=== PATIENT | male | born 1975 | race African-American/Black ===

== ENCOUNTER 2019-02-02 03:01 | Inpatient (IN) | payer OTHER ==
[2019-02-02] MEDS: ACETAMINOPHEN 325 MG TAB PO (05:09)
[2019-02-02 09:18] LABS: ADD UMIC YES; UR ASCORBIC ACID NEGATIVE (NEGATIVE); UR BILIRUBIN (Dip) NEGATIVE (NEGATIVE); UR BLOOD (Dip) 1+ mg/dL (NEGATIVE); UR CLARITY CLEAR (CLEAR); UR COLOR YELLOW (YELLOW); UR GLUCOSE (Dip) NEGATIVE (NEGATIVE); UR KETONES (Dip) NEGATIVE (NEGATIVE); UR LEUKOCYTE ESTERASE (Dip) NEGATIVE Leu/ul (NEGATIVE); UR NITRITE (Dip) NEGATIVE (NEGATIVE); UR RBC 1 /HPF (0-5); UR SPECIFIC GRAVITY (Dip) 1.018 (1.003-1.030); UR TOTAL PROTEIN (Dip) 2+ mg/dl (NEGATIVE); UR UROBILINOGEN (Dip) NEGATIVE (NEGATIVE); UR WBC 0 /HPF (0-5)
[2019-02-02] MEDS ORDERED: LORAZEPAM 2 MG INJ IV (10:30)
[2019-02-02] MEDS ORDERED: NACL 0.9% 3 ML SYG IV (10:30)
[2019-02-02] MEDS ORDERED: ACETAMINOPHEN 325 MG TAB PO (10:30)
[2019-02-02] MEDS ORDERED: ONDANSETRON 4 MG INJ IV (10:30)
[2019-02-02] MEDS: SOD CHLORIDE 0.9% 1,000 ML IV ×2 (11:11→19:10)
[2019-02-02] MEDS: MULTIVITAMINS 10 ML, THIAMINE 100 MG, FOLIC ACID 1 MG in SOD CHLORIDE 0.9% 1,000 ML IVPB (11:54)
[2019-02-02] MEDS: PANTOPRAZOLE IV 80 MG in SOD CHLORIDE 0.9% 100 ML IV ×2 (11:55→21:13)
[2019-02-02] MEDS: CHLORDIAZEPOXIDE 25 MG CAP PO ×2 (12:25→21:10)
[2019-02-02] MEDS: LIDOCAINE 2% (SDV) 5 ML INJ (15:29)
[2019-02-02] MEDS: PROPOFOL 40 ML (15:29)
[2019-02-02 15:57] LABS: INR 1.02; PROTIME 13.5 Sec (11.9-14.9); PT RATIO 1.1
[2019-02-03] MEDS: SOD CHLORIDE 0.9% 1,000 ML IV ×3 (01:56→18:17)
[2019-02-03 06:47] LABS: ADD MAN DIFF? NO
[2019-02-03 06:52] LABS: BASOPHILS % 0.3 % (0.0-2.0); EOSINOPHILS # 0.1 10^3/ul (0.0-0.5); EOSINOPHILS % 0.9 % (0.0-7.0); HEMATOCRIT 31.7 % (42.0-52.0); HEMOGLOBIN 10.5 g/dl (14.0-18.0); LYMPHOCYTES # 1.4 10^3/ul (0.8-2.9); MEAN CORPUSCULAR HEMOGLOBIN 31.2 pg (29.0-33.0); MEAN CORPUSCULAR HGB CONC 33.1 g/dl (32.0-37.0); MEAN CORPUSCULAR VOLUME 94.1 fl (82.0-101.0); MEAN PLATELET VOLUME 11.2 fl (7.4-10.4); MONOCYTE # 0.4 10^3/ul (0.3-0.9); MONOCYTES % 4.8 % (0.0-11.0); NEUTROPHIL # 5.9 10^3/ul (1.6-7.5); NEUTROPHILS % 75.6 % (39.0-77.0); PLATELET COUNT 147 10^3/UL (140-415); RED BLOOD COUNT 3.37 10^6/ul (4.70-6.10); RED CELL DISTRIBUTION WIDTH 12.5 % (11.5-14.5)
[2019-02-03 06:52] LABS: WHITE BLOOD COUNT 7.7 10^3/ul (4.8-10.8)
[2019-02-03 07:12] LABS: ALANINE AMINOTRANSFERASE 34 IU/L (13-69); ALBUMIN 3.1 g/dl (3.3-4.9); ALBUMIN/GLOBULIN RATIO 0.96; ALKALINE PHOSPHATASE 39 IU/L (42-121); ANION GAP 7 (5-13); ASPARTATE AMINO TRANSFERASE 44 IU/L (15-46); BILIRUBIN,INDIRECT 0.6 mg/dl (0-1.1); BILIRUBIN,TOTAL 0.6 mg/dl (0.2-1.3); BLOOD UREA NITROGEN 11 mg/dl (7-20); CALCIUM 8.6 mg/dl (8.4-10.2); CARBON DIOXIDE 25 mmol/L (21-31); CHLORIDE 106 mmol/L (97-110); CHOL/HDL RATIO 4.3 RATIO; CHOLESTEROL 215 mg/dl (100-200); CREATININE 1.09 mg/dl (0.61-1.24); Estimated GFR > 60 mL/min (>60); GLUCOSE 84 mg/dl (70-220); HDL CHOLESTEROL 49 mg/dl (27-67); LDL CHOLESTEROL,CALCULATED 121 mg/dl; MAGNESIUM 1.6 mg/dl (1.7-2.5); PHOSPHORUS 3.2 mg/dl (2.5-4.9); POTASSIUM 3.4 mmol/L (3.5-5.1); SODIUM 138 mmol/L (135-144); TOTAL PROTEIN 6.3 g/dl (6.1-8.1); TRIGLYCERIDES 226 mg/dl (0-149)
[2019-02-03 08:09] LABS: HEMOGLOBIN A1C 5.2 % (0-5.9)
[2019-02-03] MEDS: CHLORDIAZEPOXIDE 25 MG CAP PO ×3 (09:15→21:23)
[2019-02-03] MEDS: MULTIVITAMINS 10 ML, THIAMINE 100 MG, FOLIC ACID 1 MG in SOD CHLORIDE 0.9% 1,000 ML IVPB (09:20)
[2019-02-03] MEDS: PANTOPRAZOLE IV 80 MG in SOD CHLORIDE 0.9% 100 ML IV (09:21)
[2019-02-03] MEDS: POTASSIUM CHLORIDE (SR) 20 MEQ TAB PO (13:08)
[2019-02-03] MEDS: MAGNESIUM SULFATE 2 GM/50 ML 50 ML IVPB (15:02)
[2019-02-03] MEDS: PANTOPRAZOLE (EC) 40 MG TAB PO (19:26)
[2019-02-04] MEDS: SOD CHLORIDE 0.9% 1,000 ML IV ×2 (01:55→09:55)
[2019-02-04] MEDS: PANTOPRAZOLE (EC) 40 MG TAB PO (05:42)
[2019-02-04 06:37] LABS: ADD MAN DIFF? NO
[2019-02-04 06:49] LABS: BASOPHILS % 0.3 % (0.0-2.0); EOSINOPHILS # 0.1 10^3/ul (0.0-0.5); HEMATOCRIT 30.7 % (42.0-52.0); HEMOGLOBIN 10.9 g/dl (14.0-18.0); LYMPHOCYTES # 1.4 10^3/ul (0.8-2.9); MEAN CORPUSCULAR HEMOGLOBIN 32.4 pg (29.0-33.0); MEAN CORPUSCULAR HGB CONC 35.5 g/dl (32.0-37.0); MEAN CORPUSCULAR VOLUME 91.4 fl (82.0-101.0); MEAN PLATELET VOLUME 11.4 fl (7.4-10.4); MONOCYTE # 0.5 10^3/ul (0.3-0.9); MONOCYTES % 6.8 % (0.0-11.0); NEUTROPHILS % 70.5 % (39.0-77.0); PLATELET COUNT 151 10^3/UL (140-415); RED BLOOD COUNT 3.36 10^6/ul (4.70-6.10); RED CELL DISTRIBUTION WIDTH 11.9 % (11.5-14.5)
[2019-02-04] MEDS: CHLORDIAZEPOXIDE 25 MG CAP PO ×2 (09:47→12:34)
[2019-02-04] MEDS: MULTIVITAMINS 10 ML, THIAMINE 100 MG, FOLIC ACID 1 MG in SOD CHLORIDE 0.9% 1,000 ML IVPB (09:52)
== END 2019-02-04 15:20 | disposition home or self-care (01) | DRG 392 ==
LOC: TEL 03:01
PROC: 0DB68ZX Excision of Stomach, Via Natural or Artificial Opening Endoscopic, Diagnostic (ICD-10-PCS; principal; 2019-02-02 15:00)
DX: K29.20 Alcoholic gastritis without bleeding (principal); F10.239 Alcohol dependence with withdrawal, unspecified; N17.9 Acute kidney failure, unspecified; R65.10 Systemic inflammatory response syndrome (SIRS) of non-infectious origin without acute organ dysfunction; K70.30 Alcoholic cirrhosis of liver without ascites; F20.9 Schizophrenia, unspecified; Z59.0 Homelessness; I10 Essential (primary) hypertension; D64.9 Anemia, unspecified; J38.5 Laryngeal spasm; K20.9 Esophagitis, unspecified; K70.40 Alcoholic hepatic failure without coma; K29.80 Duodenitis without bleeding; Z87.891 Personal history of nicotine dependence
CPT/HCPCS: 80053; 80061; 81001; 83036; 83735; 84100; 85025; 85610; 87040-91; 87086; 88305; 88312